=== PATIENT | male | born 1935 | race Caucasian/White ===

== ENCOUNTER 2017-11-18 07:51 | Emergency (ER) | payer MEDICARE, OTHER ==
[~2017-11-18] VITALS: Ht 170.2 cm; Wt 78.0 kg
[~2017-11-18 07:51] MED LIST: CLON0.1T20 PO; HYDR-565 PO; LIDO700A5 TOP; MORP30TA PO; NITR0.4T SL; ZOL50T PO
[2017-11-18 08:25] VITALS: BP 125/60
[2017-11-18] MEDS ORDERED: TAM75C PO (09:30)
[2017-11-18] MEDS ORDERED: GUAI-647 PO (09:30)
== END 2017-11-18 09:59 | disposition home or self-care (01) ==
LOC: ER 07:52
DX: J11.1 Influenza due to unidentified influenza virus with other respiratory manifestations (principal); I10 Essential (primary) hypertension; I25.10 Atherosclerotic heart disease of native coronary artery without angina pectoris; G89.29 Other chronic pain; Z85.038 Personal history of other malignant neoplasm of large intestine
CPT/HCPCS: 71046; 99284

== ENCOUNTER 2019-06-06 00:41 | Emergency (ER) | payer MEDICARE, MEDICAID ==
[~2019-06-06] VITALS: Ht 170.2 cm; Wt 71.5 kg
[~2019-06-06 00:41] MED LIST changes: +ATOR80TA PO; -CLON0.1T20 PO; +CLOP75TA15 PO; -HYDR-565 PO; +ISOS30TA6 PO; -LIDO700A5 TOP; +LISI-604 PO; +MECL12.584 PO; -MORP30TA PO; +RANI150C4 PO; +SERT25TA PO; -ZOL50T PO
[2019-06-06 00:49] VITALS: BP 174/73
[2019-06-06] MEDS ORDERED: BUPIVAcaine 0.5% W/EPI /PF 30ml vial SQ STA (01:12)
[2019-06-06] MEDS ORDERED: BUPIVAcaine 0.5% inj/PF 30 ml vial IJ ONE (01:25)
== END 2019-06-06 02:30 | disposition home or self-care (01) ==
LOC: ER 00:43
DX: R51 Headache (principal); M54.2 Cervicalgia; I25.10 Atherosclerotic heart disease of native coronary artery without angina pectoris; I10 Essential (primary) hypertension; G89.29 Other chronic pain; F32.9 Major depressive disorder, single episode, unspecified; Z98.890 Other specified postprocedural states; Z85.038 Personal history of other malignant neoplasm of large intestine
CPT/HCPCS: 64450; 99284

== ENCOUNTER 2019-06-10 01:32 | Emergency (ER) | payer MEDICARE, MEDICAID ==
[~2019-06-10] VITALS: Ht 170.2 cm; Wt 70.5 kg
[2019-06-10 01:37] VITALS: BP 144/101
--- NOTE | 2019-06-10 02:28 | NUR ---
ATTEMPTED TO CALL PATIENT BACK TO ROOM, PATIENT NOT IN LOBBY.
== END 2019-06-10 03:33 | disposition left against medical advice (07) ==
LOC: ER 01:33
DX: R51 Headache (principal); Z53.21 Procedure and treatment not carried out due to patient leaving prior to being seen by health care provider; Z79.899 Other long term (current) drug therapy